=== PATIENT | female | born 1985 | race Caucasian/White ===

== ENCOUNTER 2024-01-17 12:57 | Day surgery (SDC) | payer OTHER ==
[2024-01-08 17:08] VITALS: BMI 26.5
[~2024-01-17 12:57] MED LIST: LACTATED RINGERS 1,000 ML IV SCH; LIDOCAINE 1% (10MG/ML) FOR IV START INTRADERMA PRN; ONDANSETRON 4 MG/2 ML VIAL IVP PRN
[2024-01-17] MEDS: LACTATED RINGERS 1,000 ML IV SCH (14:08)
[2024-01-17 14:35] VITALS: TEMP 97.6
[2024-01-17] MEDS ORDERED: LIDOCAINE 1% INJ 10MG/ML (20 ML MDV) ONE (15:38)
[2024-01-17] MEDS ORDERED: PROPOFOL 10 MG/ML 20 ML VIAL IV ONE (15:38)
--- NOTE | 2024-01-17 15:58 | P.PCN ---
Date of Procedure: 01/17/24 Procedure(s) Performed: BRIEF HISTORY: Patient is a 38-year-old pleasant female scheduled for an elective colonoscopy as a part of evaluation of prior history of colon polyps. Her last colonoscopy was 11 years ago and according to the patient she had 3 polyps at that time. PROCEDURE PERFORMED: Colonoscopy with biopsy. PREOPERATIVE DIAGNOSIS: History of Colon polyps. IV sedation per Anesthesia. PROCEDURE: After informed consent was obtained, the patient, was brought into the endoscopy unit. IV sedation was administered by Anesthesia under continuous monitoring. Digital rectal examination was normal. Initially the Olympus CF-160 flexible video colonoscope was then inserted in the rectum, gradually advanced into the cecum without any difficulty. Careful examination was performed as the scope was gradually being withdrawn. Ileocecal valve and the appendiceal orifice were visualized and appeared normal. Prep was excellent. Mucosa of the cecum, had a 5 mm sessile polyp that was removed by cold biopsy. Rest of the ascending colon, transverse colon, descending colon, sigmoid colon, and rectum appeared normal. Retroflexion was performed in the rectum and no lesions were seen. The patient tolerated the procedure well. IMPRESSION: 5 mm sessile polyp in the cecum status post cold biopsy Rest of the colon appeared normal RECOMMENDATIONS: Findings of this examination were discussed with the patient as well as a family. She was advised to follow with the biopsy results and if the biopsy she can have a repeat colonoscopy in 5 years..
[2024-01-17 16:36] VITALS: BP 120/73; PULSE 80; RESP 18
== END 2024-01-17 16:30 | disposition home or self-care (01) ==
LOC: ORWHC2ENDO 12:57
PROVIDERS: ATTEND Internal Medicine Gastroenterology
DX: Z12.11 Encounter for screening for malignant neoplasm of colon (principal); D12.0 Benign neoplasm of cecum; Z86.010 Personal history of colon polyps; Z91.048 Other nonmedicinal substance allergy status; Z79.899 Other long term (current) drug therapy
CPT/HCPCS: 45380 ×2; 81025; 88305; J2001; J2704

== ENCOUNTER → 2024-12-11 | Outpatient (CLI) | payer OTHER ==
--- NOTE | 2024-12-11 18:24 | CA ---
Transthoracic Echo Report Name: Raisa Whiting Age: 39 Gender: F : 1985 Exam Date: 12/11/2024 08:21 Exam Location: [place] [facility] Ht (in): 63 Wt (lb): 155 Ordering Physician: Ana Laura Wells MD Attending/Referring Phys: Maintenance Fitter Bonny Clark RDCS Procedure CPT: Indications: R07.89 chest pain Cardiac Hx: Technical Quality: Good Contrast 1: Total Dose (mL): Contrast 2: Total Dose (mL): MEASUREMENTS (Male / Female) Normal Values 2D ECHO LV Diastolic Diameter PLAX 4.2 cm 4.2 - 5.9 / 3.9 - 5.3 cm LV Systolic Diameter PLAX 2.7 cm IVS Diastolic Thickness 0.7 cm 0.6 - 1.0 / 0.6 - 0.9 cm LVPW Diastolic Thickness 0.8 cm 0.6 - 1.0 / 0.6 - 0.9 cm LV Relative Wall Thickness 0.4 LVOT Diameter 2.1 cm Aortic Root Diameter 2.7 cm LV Diastolic Volume MOD BP 105.4 cm??? 67 - 155 / 56 - 104 cm??? LV Systolic Volume MOD BP 35.8 cm??? 22 - 58 / 19 - 49 cm??? LV Ejection Fraction MOD BP 66.0 % >= 55 % LV Cardiac Index MOD BP 2647.3 cm???/min???m??? LV Diastolic Volume MOD 4C 105.2 cm??? LV Systolic Volume MOD 4C 34.1 cm??? LV Ejection Fraction MOD 4C 67.6 % LV Cardiac Index MOD 4C 2706.5 cm???/min???m??? LV Diastolic Length 4C 8.0 cm LV Systolic Length 4C 6.2 cm LV Diastolic Volume MOD 2C 103.9 cm??? LV Systolic Volume MOD 2C 36.4 cm??? LV Ejection Fraction MOD 2C 65.0 % LV Cardiac Index MOD 2C 2569.0 cm???/min???m??? LV Diastolic Length 2C 8.2 cm LV Systolic Length 2C 6.4 cm Ascending Aorta Diameter 3.0 cm DOPPLER AV Peak Velocity 122.8 cm/s AV Peak Gradient 6.0 mmHg AV Mean Velocity 84.4 cm/s AV Mean Gradient 3.2 mmHg AV Velocity Time Integral 25.7 cm LVOT Peak Velocity 101.5 cm/s LVOT Peak Gradient 4.1 mmHg LVOT Velocity Time Integral 20.4 cm LVOT Stroke Volume 68.3 cm??? LVOT Stroke Volume Index 39.4 ml/m??? LVOT Cardiac Index 2600.8 cm???/min???m??? AV Area Cont Eq vti 2.7 cm??? AV Area Cont Eq pk 2.8 cm??? Mitral E Point Velocity 73.8 cm/s Mitral A Point Velocity 48.9 cm/s Mitral E to A Ratio 1.5 MV Deceleration Time 156.3 ms MV E' Velocity 9.1 cm/s Mitral E to MV E' Ratio 8.1 PV Peak Velocity 108.5 cm/s PV Peak Gradient 4.7 mmHg FINDINGS Left Ventricle Left ventricular ejection fraction is estimated at 60-65 %. Mildly increased left ventricular diastolic volume. Left ventricular wall thickness normal. No obvious regional wall motion abnormalities. Right Ventricle Normal right ventricular size and function. Unable to estimate the right ventricular systolic pressure. Right Atrium Normal right atrial size. Left Atrium Normal left atrial size. Mitral Valve Structurally normal mitral valve. No mitral stenosis, regurgitation or prolapse. Aortic Valve Trileaflet aortic valve. No aortic valve stenosis or regurgitation. Tricuspid Valve Structurally normal tricuspid valve. No tricuspid stenosis. Trace tricuspid regurgitation. Pulmonic Valve Structurally normal pulmonic valve. No pulmonic stenosis. Trace pulmonic regurgitation. Pericardium No pericardial effusion. Aorta Normal size aortic root and proximal ascending aorta. CONCLUSIONS EF 60 to 65% No obvious regional wall motion abnormality No significant diastolic dysfunction No significant chamber size abnormality No significant valvular dysfunction Previewed by: Dr Godfrey Pritchett (Electronically Signed) Final Date: 11 December 2024 18:23
--- NOTE | 2024-12-11 18:26 | CA ---
Exercise Stress Test Report Name: Raisa Whiting Exam Date: 12/11/2024 09:06 Exam Location: [place] Stress Ht (in): 63 Wt (lb): 158 BSA: 1.75 Ordering Phys: Ana Laura Wells MD Referring Phys: ANA LAURA WELLS Technologist: Cheikh Lynn Age: 39 Gender: F : 1985 Procedure CPT: Indications: R07.89 chest pain ICD-10 Codes: Angina pectoris, dyspnea on exertion Patient History: PALPITATIONS, FAMILY HX OF HEART DISEASE Medications: Meds past 24 hrs: Pretest Chest Pain: STRESS TEST Vicente Protocol Exercise Duration (min:sec): 12:[address] Depressions (mm): Angina Score: Louis Score: Resting HR (bpm): 82 Peak HR (bpm): 164 Resting BP (mmHg): 116 / 76 Peak BP (mmHg): 142 / 74 MPHR: 180 Target HR: 153 % MPHR: 91 METS: 13.0 Total Dose: Peak Dose: Atropine: Double Product: 40609 BP Response: Stress Termination: MAX EXERTION/TARGET HR Stress Symptoms: NO SYMPTOMS Stress Summary: Patient exercised on Vicente protocol for 12 minutes 32 seconds achieving 13 METS. Patient was able to achieve 91% of age- predicted maximal heart rate. Patient had normal blood pressure and heart rate response. The test was terminated because of completion of protocol and fatigue. There was no reported substernal chest pressure or shortness of breath during treadmill protocol. ECG ANALYSIS Resting ECG: Normal sinus rhythm, normal axis. Heart rate 74 beats per min Stress ECG: No significant ST-T wave changes that are diagnostic for ischemia. There were no sustained arrhythmias or ectopic beats noticed during the stress test CONCLUSIONS Overall good exercise tolerance for age achieving 13 METS Normal hemodynamic and clinical response to treadmill exercise Nonischemic ECG response to treadmill exercise Overall low probability for severe obstructive coronary artery disease Dr Godfrey Pritchett (Electronically Signed) Final Date: 11 December 2024 18:25
== END | disposition home or self-care (01) ==
LOC: RADECHMAIN 08:10
PROVIDERS: ATTEND Internal Medicine
DX: R07.89 Other chest pain (principal); R06.09 Other forms of dyspnea
CPT/HCPCS: 93017; 93306